=== PATIENT | female | born 1995 | race Two or more races ===

== ENCOUNTER 2017-12-04 19:32 | Emergency (ER) | payer MEDICAID ==
[~2017-12-04] VITALS: Ht 170.2 cm; Wt 59.0 kg
[~2017-12-04 19:32] MED LIST: IRON18TA; PREN-124 PO
[2017-12-04 19:40] VITALS: BP 131/89
== END 2017-12-04 20:42 | disposition home or self-care (01) ==
LOC: ER 19:33
DX: S16.1XXA Strain of muscle, fascia and tendon at neck level, initial encounter (principal); F10.10 Alcohol abuse, uncomplicated; F11.10 Opioid abuse, uncomplicated; F17.200 Nicotine dependence, unspecified, uncomplicated; V43.62XA Car passenger injured in collision with other type car in traffic accident, initial encounter; Y93.89 Activity, other specified; Y92.89 Other specified places as the place of occurrence of the external cause; Y99.8 Other external cause status
CPT/HCPCS: 99283; A4606; Z7610

== ENCOUNTER 2018-11-30 15:31 | Emergency (ER) | payer MEDICAID ==
[~2018-11-30] VITALS: Ht 170.2 cm; Wt 55.4 kg
[2018-11-30 15:38] VITALS: BP 112/76
[2018-11-30] MEDS ORDERED: IV NS 0.9% 1,000 ML BAG IV ONE (16:00)
[2018-11-30] MEDS ORDERED: hydrOXYzine 10 MG TABLET PO ONE (16:00)
[2018-11-30] MEDS ORDERED: ONDANSETRON HCL/PF 4 MG/2 ML VIAL IVP ONE (16:00)
[2018-11-30] MEDS ORDERED: ONDANSETRON HCL/PF 4 MG/2 ML VIAL ONE (16:14)
[2018-11-30] MEDS ORDERED: hydrOXYzine 10 MG TABLET ONE (16:14)
--- NOTE | 2018-11-30 16:20 | NUR ---
PT APPEARS TO BE ANXIOUS. PT IS ON THE MONITOR AND CONTINUOUS PULSE OX. PT IS C/O FEELING THIRSTY. PT REC'D PO MEDICATION WITH APPROX 80ML OF WATER. PT TOLERATED PO WELL. 20G IV STARTED IN RAC AND BLOOD WAS DRAWN AND SENT TO LAB. PT'S MOTHER IS AT THE BEDSIDE AND STATED THAT SHE WILL GO HOME BRIEFLY AND RETURN. PT REC'D MEDICATION ORDERED.
[2018-11-30 16:26] LABS: BASOPHILS % (AUTO) 0.1 % (0.0-2.0); EOSINOPHILS % (AUTO) 0.4 % (0.0-6.0); HEMATOCRIT 40 % (33-45); HEMOGLOBIN 12.9 g/dL (11.5-14.8); LYMPHOCYTES # (AUTO) 1.2 /CMM (0.8-4.8); LYMPHOCYTES % (AUTO) 9.3 % (20.0-44.0); MEAN CORPUSCULAR HGB CONC 33 g/dl (31.0-36.0); MEAN CORPUSCULAR VOLUME 78 fL (82-100); MONOCYTES # (AUTO) 1.1 /CMM (0.1-1.30); MONOCYTES % (AUTO) 8.7 % (2.0-12.0); NEUTROPHILS # (AUTO) 10.4 /CMM (1.8-8.9); NEUTROPHILS % (AUTO) 81.5 % (43.0-81.0); PLATELET COUNT (AUTO) 333 /CMM (150-450); RED BLOOD CELL COUNT(AUTO) 5.06 MIL/uL (4.0-5.2); WHITE BLOOD COUNT (AUTO) 12.7 K/uL (4.3-11.0)
[2018-11-30 16:32] LABS: CALCIUM, SERUM 9.3 mg/dL (8.5-10.1); CREATININE 0.7 mg/dL (0.6-1.3); POTASSIUM 2.9 mmol/L (3.5-5.1)
--- NOTE | 2018-11-30 16:50 | NUR ---
INFLUENZA SWAB DONE AND SENT TO LAB.
[2018-11-30] MEDS ORDERED: POTASSIUM CHLORIDE 20 MEQ TAB.PRT.SR PO ONE (17:30)
--- NOTE | 2018-11-30 17:50 | NUR ---
PT STARTED TO WALK OUT OF THE ER AND WAS REFUSING ANY FURTHER MEDICAL TREATMENT. PT SIGNED AN AMA FORM. Patient does not wish to proceed with medical care recommended by Gabriel ZHENG PA-C. Patient given information related to possible complications, up to and including , which could occur as a result of leaving the hospital at this time. Patient verbalizes understanding of risks involved due to leaving against medical advice. Patient has signed AMA form. 20G RAC IV removed. Catheter intact and site benign. Pressure and 4x4 applied to site. No bleeding noted. PT'S FATHER WAS OUTSIDE AND TAKING PT HOME.
[2018-11-30] MEDS ORDERED: LEVOFLOXACIN (750 MG) 750 MG TABLET PO ONE (18:30)
[2018-12-04] MEDS ORDERED: AMOX500T2 PO (15:08)
[2018-12-04] MEDS ORDERED: AZIT500T PO (15:08)
== END 2018-11-30 18:29 | disposition left against medical advice (07) ==
LOC: ER 15:33
DX: J18.9 Pneumonia, unspecified organism (principal); F11.23 Opioid dependence with withdrawal; R11.2 Nausea with vomiting, unspecified; F17.200 Nicotine dependence, unspecified, uncomplicated; F10.10 Alcohol abuse, uncomplicated; Y90.9 Presence of alcohol in blood, level not specified
CPT/HCPCS: 36415; 71045; 80048; 85025; 87804 ×2; 96361; 96374; 99284; A4606; J2405; J7030; Q0177; 87400

== ENCOUNTER 2018-12-02 21:02 | Inpatient (IN) | payer MEDICAID ==
[~2018-12-02] VITALS: Ht 170.2 cm; Wt 62.7 kg
--- NOTE | 2018-12-02 21:26 | NUR ---
CALLED PT TO BE TRIAGED, NO ANSWER
--- NOTE | 2018-12-02 21:36 | NUR ---
PT BBISELF FOR CHEST PAIN AND COUGH/CONGESTION; PT AAOX4, PT ON MONITOR ,VSS, NAD NOTED, PENDING ER PROVIDER EVAL
[2018-12-02] MEDS ORDERED: IV NS 0.9% 1,000 ML BAG IV ONE (22:30)
[2018-12-02 22:48] LABS: BASOPHILS % (AUTO) 0.1 % (0.0-2.0); HEMATOCRIT 40 % (33-45); HEMOGLOBIN 13.1 g/dL (11.5-14.8); LYMPHOCYTES # (AUTO) 2.9 /CMM (0.8-4.8); LYMPHOCYTES % (AUTO) 13.8 % (20.0-44.0); MEAN CORPUSCULAR HGB CONC 33 g/dl (31.0-36.0); MEAN CORPUSCULAR VOLUME 78 fL (82-100); MONOCYTES # (AUTO) 1.3 /CMM (0.1-1.30); MONOCYTES % (AUTO) 5.9 % (2.0-12.0); NEUTROPHILS % (AUTO) 80.2 % (43.0-81.0); PLATELET COUNT (AUTO) 255 /CMM (150-450); RED BLOOD CELL COUNT(AUTO) 5.16 MIL/uL (4.0-5.2); WHITE BLOOD COUNT (AUTO) 21.2 K/uL (4.3-11.0)
[2018-12-02 22:51] LABS: CALCIUM, SERUM 9.3 mg/dL (8.5-10.1); CREATININE 0.7 mg/dL (0.6-1.3); POTASSIUM 3.6 mmol/L (3.5-5.1)
[2018-12-02 23:04] LABS: ALBUMIN 2.7 g/dL (3.4-5.0); BILIRUBIN,TOTAL 0.4 mg/dL (0.2-1.0); TOTAL PROTEIN, SERUM 7.7 g/dL (6.4-8.2)
[2018-12-03] MEDS ORDERED: PIPERACILLIN /TAZOBACTAM 3.375 G VIAL IV ONE (00:48)
[2018-12-03] MEDS ORDERED: PIPERACILLIN /TAZOBACTAM 3.375 G in IV D5W 50 ML IV ONE (01:00)
[2018-12-03] MEDS ORDERED: HYDROCODONE/APAP 5/325MG 1 EACH TABLET ONE (01:00)
[2018-12-03] MEDS ORDERED: HYDROCODONE/APAP 5/325MG 1 EACH TABLET PO ONE (01:00)
[2018-12-03] MEDS ORDERED: LORAZEPAM INJ 2 MG/ML VIAL IV PRN (02:00)
[2018-12-03] MEDS ORDERED: MAGNESIUM HYDROXIDE 30 ML UDC PO PRN (02:00)
[2018-12-03] MEDS ORDERED: ONDANSETRON HCL/PF 4 MG/2 ML VIAL IVP PRN (02:00)
[2018-12-03] MEDS ORDERED: ZOLPIDEM TARTRATE 5 MG TABLET PO PRN (02:00)
[2018-12-03] MEDS ORDERED: ACETAMINOPHEN 325 MG TABLET PO PRN (02:00)
[2018-12-03] MEDS ORDERED: GUAIFENESIN/D-METHORPHAN HB 5 ML UDC PO PRN (02:00)
[2018-12-03] MEDS ORDERED: Z GUARD REMEDY 2 OZ OINT TP PRN (02:00)
[2018-12-03] MEDS ORDERED: IV NS 0.9% 1,000 ML IV PRN (02:00)
[2018-12-03] MEDS ORDERED: MAG HYDROX/AL HYDROX/SIMETH 30 ML UDC PO PRN (02:00)
--- NOTE | 2018-12-03 02:31 | NUR ---
REPORT GIVEN TO HAN NICOLE FOR DOUG; PT WILL BE TRANSPORTED VIA W/C, PT [facility]
[2018-12-03 02:50] VITALS: BP 113/61
--- NOTE | 2018-12-03 03:00 | NUR ---
INFORMATICS APPLICATION ANALYST NOTES Patient came to unit via gurney accompanied by family. Alert, oriented x 4. Not in any distress. Tele monitor in place- sinus rhythm 73. IV access in R EJ g#20, intact and patent. Skin assessment done, bruise on R arm noted- as per patient, it is from multiple IV insertion- picture in chart. Oriented to call rivas- placed within reach. Bed in low, locked position. Will continue to monitor accordingly
[2018-12-03] MEDS ORDERED: CEFTRIAXONE 1 G VIAL ONE (03:20)
--- NOTE | 2018-12-03 03:20 | NUR ---
RN NOTES Clarified with Dr. Ovalle regarding the IV fluids- give bolus and then 200mL/hr
[2018-12-03] MEDS: AZITHROMYCIN 250 MG TABLET PO SCH (03:23)
[2018-12-03] MEDS: ENOXAPARIN SODIUM 40 MG/0.4 ML DISP.SYRIN SQ SCH (03:25)
[2018-12-03] MEDS: CEFTRIAXONE 1 G in IV D5W 50 ML IV SCH (03:45)
[2018-12-03] MEDS: ALBUTEROL FS 2.5 MG/3 ML VIAL.NEB NEB SCH ×7 (04:01→23:29)
[2018-12-03] MEDS: IV NS 0.9% 1,000 ML IV PRN ×2 (04:30→13:39)
--- NOTE | 2018-12-03 05:38 | NUR ---
RN NOTES Patient c/o nausea and vomiting, Zofran 4mg IV given as ordered. Will continue to monitor
[2018-12-03] MEDS: HYDROCODONE/APAP 5/325MG 1 EACH TABLET PO PRN ×3 (06:15→19:04)
--- NOTE | 2018-12-03 06:16 | NUR ---
RN NOTES Patient c/o chest pain due to cough & congestion, 7-05/25. [place] 5-325 given as ordered. Will continue to monitor
[2018-12-03 07:00] VITALS: BP_SYST 105; BP_SYST 118; BP_DIAS 64; BP_DIAS 71
--- NOTE | 2018-12-03 07:03 | NUR ---
EQUINE MANAGER CLOSING NOTES Patient in bed, family at bedside. Alert, oriented x 4. Breathing even and unlabored. Not in any distress. No complaints as of this time. Peripheral IV infusing at 200mL/hr. On tele monitor, sinus rhythm 81 with occasional PVC's. All needs attended to. All due medications given as ordered. Will endorse DOUG to oncoming RN
--- NOTE | 2018-12-03 08:00 | NUR ---
ZIPPER JOINER AM NOTES Patient in bed, family at bedside. Alert, oriented x 4. With occasional moist coughing episodes.Robit DM syrup given.Encouraged increase fluid intake.Breathing even and unlabored. Not in any distress. No complaints as of this time. Peripheral IV NS infusing at 200mL/hr. On tele monitor, sinus rhythm 81 with occasional PVC's.Boyfriend and mom at the bedside. Call light placed within reach.
[2018-12-03 09:00] VITALS: BP 105/64
[2018-12-03 12:00] VITALS: BP 119/66
--- NOTE | 2018-12-03 12:30 | NUR ---
Pt has been sleeping most of the time after taking [place].No coughing noted.Encouraged fluids and to ambulate MORIAH so as not to develop PNA. Med teaching given about pros and cons of taking NORCO.
[2018-12-03 16:00] VITALS: BP_SYST 113; BP_SYST 118; BP_DIAS 61; BP_DIAS 71
--- NOTE | 2018-12-03 16:08 | NUR ---
STRUCTURAL STEEL WORKER HELPER ATTEMPTED X IN OBTAINING BLOOD FOR LAB TESTS BUT TO NO AVAIL.PT IS A HARDSTICK.WILL INFORM DANIEL ALTAMIRANO.
[2018-12-03] MEDS ORDERED: BENZONATATE 100 MG CAPSULE PO PRN (17:00)
--- NOTE | 2018-12-03 18:25 | NUR ---
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
--- NOTE | 2018-12-03 19:07 | NUR ---
PT WOKE UP CRYING SAYING HER RIGHT RIB HURTS WHEN SHE COUGHS EVEN WHEN PT HASN'T COUGH AT ALL AND WAS SLEEPING ALL THE TIME.PT HASN'T EATEN ANY OF HER MEALS BECAUSE OF SLEEPING ALL THE TIME.EXPLAINED TO THE PT THE IMPORTANCE OF WALKING AND NOT STAYING IN BED ALL THE TIME.MED TEACHING REGARDING NORCO USE AND THE EFFECT OF JUST STAYING IN BED.PT'S MALE FRIEND IS AT THE LOBBY WANTING TO COME UP WHICH PT'S FATHER,JARET PROHIBITED.LEFT A MESSAGE IN JARET'S VM.
--- NOTE | 2018-12-03 19:45 | NUR ---
RN OPENING NOTES RECEIVED REPORT FROM DAYSIAFT RN JOSE RAMON. FOUND Pt AWAKE, RESTING IN BED COMFORTABLY. NO S/S OF ACUTE DISTRESS OR SOB NOTED. RESPIRATIONS EVEN AND UNLABORED. Pt IS A/OX4, VERBAL, ABLE TO MAKE NEEDS KNOWN. Pt IS C/O PAIN AT THIS TIME, BUT HAS ALREADY BEEN GIVEN NORCO-5 @1900, PRN NORCO IS SCHEDULED Q4H, WILL REASSESS PAIN. Pt IS AMB. IV ACCESS ON REJ #20G, NS @200ML/HR, INFUSING WELL. SAFETY MEASURES IN PLACE. BED LOW, LOCKED, HOB ELEVATED, SIDE RAILS UP, CALL LIGHT AND BEDSIDE TABLE WITHIN REACH. WILL CONTINUE TO MONITOR Pt's CONDITION AND SAFETY THROUGHOUT THE NIGHT.
[2018-12-03 20:00] VITALS: BP 123/68
--- NOTE | 2018-12-03 22:30 | NUR ---
RN NOTES Pt WAS C/O SEVERE PAIN AND REQUESTED FOR NORCO-5. INFORMED Pt THAT THE NORCO-5 WAS NOT DUE UNTIL 2300. Pt THEN REQUESTED FOR ATIVAN TO HELP WITH HER ANXIETY THAT'S BEING INCREASED BY HER PAIN. ADMINISTERED 0.5MG OF ATIVAN PER PRN ORDER.
[2018-12-03 22:31] LABS: BASOPHILS % (AUTO) 0.2 % (0.0-2.0); HEMATOCRIT 34 % (33-45); HEMOGLOBIN 11.1 g/dL (11.5-14.8); LYMPHOCYTES # (AUTO) 2.1 /CMM (0.8-4.8); LYMPHOCYTES % (AUTO) 20.3 % (20.0-44.0); MEAN CORPUSCULAR HGB CONC 32 g/dl (31.0-36.0); MEAN CORPUSCULAR VOLUME 78 fL (82-100); MONOCYTES # (AUTO) 0.6 /CMM (0.1-1.30); NEUTROPHILS # (AUTO) 7.6 /CMM (1.8-8.9); NEUTROPHILS % (AUTO) 73.5 % (43.0-81.0); PLATELET COUNT (AUTO) 336 /CMM (150-450); RED BLOOD CELL COUNT(AUTO) 4.41 MIL/uL (4.0-5.2); WHITE BLOOD COUNT (AUTO) 10.3 K/uL (4.3-11.0)
[2018-12-03 23:02] LABS: ALBUMIN 2.4 g/dL (3.4-5.0); BILIRUBIN,DIRECT 0.1 mg/dL (0.0-0.2); BILIRUBIN,TOTAL 0.2 mg/dL (0.2-1.0); CALCIUM, SERUM 8.2 mg/dL (8.5-10.1); CREATININE 0.6 mg/dL (0.6-1.3); TOTAL PROTEIN, SERUM 6.7 g/dL (6.4-8.2)
[2018-12-03 23:06] LABS: POTASSIUM 2.6 mmol/L (3.5-5.1)
--- NOTE | 2018-12-03 23:50 | NUR ---
RN NOTES SPOKE WITH DR CONNORS ON THE PHONE. INFORMED MD OF Pt's CRITICAL LAB VALUE OF POTASSIUM 2.6; INFORMED HER THAT Pt REQUESTED FOR PO REPLACEMENT INSTEAD OF IV REPLACEMENT. PER MD ORDER TO GIVE KDUR 40MEQ NOW AND THEN ANOTHER KDUR 40MEQ IN 4HOURS. WILL CARRY OUT ORDERS.
--- NOTE | 2018-12-04 00:05 | NUR ---
RN NOTES Pt C/O 06/24 RT UPPER ABD PAIN REQUESTED FOR NORCO-5. BP 146/78. HR 74.
[2018-12-04] MEDS: ENOXAPARIN SODIUM 40 MG/0.4 ML DISP.SYRIN SQ SCH (02:00)
[2018-12-04] MEDS: CEFTRIAXONE 1 G in IV D5W 50 ML IV SCH (02:58)
[2018-12-04] MEDS: AZITHROMYCIN 250 MG TABLET PO SCH (03:06)
--- NOTE | 2018-12-04 03:21 | NUR ---
RN NOTES Pt REFUSED SCHEDULED LOVENOX. HAD TO WASTE MED. Addendum: 12/04/18 at 0333 by QUIN DAVIS RN PER Pt STATEMENT, SAID THE SHOT HURTS HER STOMACH.
[2018-12-04] MEDS: ALBUTEROL FS 2.5 MG/3 ML VIAL.NEB NEB SCH ×3 (03:30→11:24)
[2018-12-04] MEDS ORDERED: POTASSIUM CHLORIDE 20 MEQ TAB.PRT.SR PO ONE ×2 (04:00)
--- NOTE | 2018-12-04 04:00 | NUR ---
RN NOTES ALL ORDERED MEDS FOR KDUR GIVEN FOR K REPLACEMENT.
[2018-12-04] MEDS: IV NS 0.9% 1,000 ML IV PRN (04:52)
[2018-12-04] MEDS: HYDROCODONE/APAP 5/325MG 1 EACH TABLET PO PRN ×3 (05:05→12:29)
--- NOTE | 2018-12-04 05:25 | NUR ---
RN NOTES Pt C/O 9/10 SEVERE PAIN ON RT UPPER RIB CAGE AREA. REQUESTING FOR PRN NORCO. BP 141/68, HR 92.
--- NOTE | 2018-12-04 07:06 | NUR ---
RN CLOSING NOTES NO SIGNIFICANT CHANGES IN Pt's CONDITION DURING THE NIGHT. Pt REMAINS STABLE PER BASELINE. NO S/S OF ACUTE DISTRESS OR SOB NOTED. Pt RESTING IN BED. RESPIRATIONS EVEN AND UNLABORED. ALL NEEDS MET AND ATTENDED TO. SAFETY MEASURES IN PLACE. WILL ENDORSE TO DAYSHIFT RN FOR Pt's DOUG.
--- NOTE | 2018-12-04 07:45 | NUR ---
MS RN OPENING NOTE RECEIVED PATIENT IN BED. ALERT ORIENTED X4, ON ROOM AIR, TOLERATING WELL. IN NO APPARENT DISTRESS OR DISCOMFORT AT THIS TIME. RESPIRATIONS EVEN AND UNLABORED. DENIES PAIN AND SOB. PATIENT IS ABLE TO COMMUNICATE NEEDS. ABLE TO AMBULATE INDEPENDENTLY. RIGHT EJ 20G IVC WITH FLUIDS RUNNING AT 200ML/HR, PATENT AND INTACT. PATIENT KEPT CLEAN AND COMFORTABLE. ALL NEEDS ATTENDED, SAFETY MEASURES IN PLACE, BED IN LOW LOCKED POSITION, SIDE RAILS UP X2, CALL LIGHT WITHIN EASY REACH, WILL CONTINUE TO MONITOR.
[2018-12-04 08:00] VITALS: BP 123/65
[2018-12-04 10:58] LABS: BASOPHILS # (AUTO) 0.1 /CMM (0.0-0.2); BASOPHILS % (AUTO) 0.5 % (0.0-2.0); HEMATOCRIT 39 % (33-45); HEMOGLOBIN 12.5 g/dL (11.5-14.8); LYMPHOCYTES # (AUTO) 3.6 /CMM (0.8-4.8); LYMPHOCYTES % (AUTO) 30.3 % (20.0-44.0); MEAN CORPUSCULAR HGB CONC 32 g/dl (31.0-36.0); MEAN CORPUSCULAR VOLUME 79 fL (82-100); MONOCYTES # (AUTO) 0.7 /CMM (0.1-1.30); MONOCYTES % (AUTO) 5.7 % (2.0-12.0); NEUTROPHILS # (AUTO) 7.5 /CMM (1.8-8.9); NEUTROPHILS % (AUTO) 63.5 % (43.0-81.0); PLATELET COUNT (AUTO) 281 /CMM (150-450); RED BLOOD CELL COUNT(AUTO) 4.89 MIL/uL (4.0-5.2); WHITE BLOOD COUNT (AUTO) 11.8 K/uL (4.3-11.0)
[2018-12-04 11:40] LABS: CALCIUM, SERUM 8.9 mg/dL (8.5-10.1); CREATININE 0.6 mg/dL (0.6-1.3); PHOSPHORUS 2.4 mg/dL (2.5-4.9); POTASSIUM 3.7 mmol/L (3.5-5.1)
[2018-12-04] MEDS ORDERED: K PHOS NEUTRAL 250 MG TABLET PO ONE (13:30)
[2018-12-04] MEDS ORDERED: AMOX500T2 PO (15:08)
[2018-12-04] MEDS ORDERED: AZIT500T PO (15:08)
--- NOTE | 2018-12-04 16:05 | NUR ---
MS CONFERENCE SPECIALIST NOTE RECEIVED ORDER FOR DISCHARGE FROM MIKE CHRISTIANSON NP. PATIENT IS BEING DISCHARGED HOME TO SELF CARE. PATIENT IS STABLE. VITAL SIGNS STABLE. IN NO APPARENT DISTRESS OR DISCOMFORT AT THIS TIME. RESPIRATIONS EVEN AND UNLABORED. ON ROOM AIR, DENIES SOB. DISCHARGE PAPERWORK PREPARED VIA [employer]. REVIEWED WITH PATIENT, INSTRUCTIONS PROVIDED REGARDING DISEASE PROCESS, NEW MEDICATIONS AND FOLLOW UP CARE. PATIENT VERBALIZED UNDERSTANDING FO TEACHINGS. MEDICATION PRESCRIPTION GIVEN TO THE PATIENT. BELONGINGS CHECKED AND ACCOUNTED FOR. ALL PAPERWORK SIGNED, COPIES MADE PLACED IN CHART. PATIENT REFUSED FLU VACCINE. REFUSED SKIN CHECK STATING SHE DOESN'T HAVE ANYTHING ON HER SKIN AND SHE DOES NOT WANT TO UNDRESS. IV CATHETER REMOVED, TIP INTACT. ID BAND REMOVED. PATIENT LEFT THE UNIT WITH HER FATHER AND FRANKLIN DEMPSEY AT 1605.
[2018-12-04 16:06] VITALS: BP 122/71
== END 2018-12-04 18:42 | disposition home or self-care (01) | DRG 720 ==
LOC: ER 21:36 → MED 12-03 02:01 → TELE 12-03 03:45 → MED 12-03 16:26
PROVIDERS: ADMIT Nurse Practitioner Acute Care; ATTEND Nurse Practitioner Acute Care
DX: A41.9 Sepsis, unspecified organism (principal); E44.0 Moderate protein-calorie malnutrition; J15.9 Unspecified bacterial pneumonia; R74.0 Nonspecific elevation of levels of transaminase and lactic acid dehydrogenase [LDH]; J98.11 Atelectasis; F11.11 Opioid abuse, in remission; F17.210 Nicotine dependence, cigarettes, uncomplicated; D72.829 Elevated white blood cell count, unspecified; R07.89 Other chest pain
CPT/HCPCS: 36415; 71045-TC; 76705-TC; 80048-TC; 80061-TC; 80076-TC; 83605-TC; 83690-TC; 83735-TC; 84100-TC; 84484-TC; 84703-TC; 85025-TC; 87040-TC; 87081-TC; 94799-TC; G0378; J0696; J1650; J2060; J2405; J2543; J7030; J7060